=== PATIENT | female | born 1950 | race Hispanic/Latino ===

== ENCOUNTER 2016-10-29 11:00 | Day surgery (SDC) | payer OTHER ==
[2016-09-29 11:47] VITALS: BMI 33.9
[2016-10-29] MEDS ORDERED: Propofol 10 mg/ml Inj (20 ML) ONE (12:22)
[2016-10-29] MEDS ORDERED: Sodium Chloride 0.9% 1,000 ML IV SCH (13:45)
[2016-10-29] MEDS ORDERED: Simethicone 40 mg/0.6 ml Liquid (30 ml) ONE (13:55)
[2016-10-29] MEDS ORDERED: Albuterol 0.083% Inhal Sol (2.5 mg/3 mL) UD IH STA (14:57)
--- NOTE | 2016-10-29 18:26 | RAD ---
HISTORY: r/o pneumonia COMPARISON: 06/13/2015 FINDINGS: LUNGS: The lungs are well inflated and clear. PLEURA: No significant pleural effusion identified, no pneumothorax apparent. CARDIOVASCULAR: Normal. OSSEOUS STRUCTURES: No significant abnormalities. VISUALIZED UPPER ABDOMEN: Normal. OTHER FINDINGS: None. IMPRESSION: No active pulmonary disease.
[2016-10-30] MEDS: Piperacillin/Tazobact 3.375 gm 100 ML IVPB SCH ×2 (02:04→07:25)
[2016-10-30 08:42] LABS: ADD MANUAL DIFF? NO
[2016-10-30 08:46] LABS: BASO # 0.03 K/mm3 (0.0-2.0); BASO % 0.3 % (0.0-3.0); EOS # 0.3 (0.0-0.7); EOS % 2.2 % (1.5-5.0); GRAN # 9.15 (1.4-6.5); LYMPH # 1.4 (1.2-3.4); LYMPH % 12.3 % (22.0-35.0); MEAN CELL VOLUME 86.5 fL (80.0-105.0); MEAN CORPUSCULAR HEMOGLOBIN 28.1 pg (25.0-35.0); MEAN CORPUSCULAR HGB CONC 32.5 g/dl (31.0-37.0); MEAN PLATELET VOLUME 9.4 fl (7.0-11.0); MONO # 0.5 (0.1-0.6); MONO % 4.2 % (1.0-6.0); PLATELET COUNT 236 10^3/uL (120.0-450.0); RED CELL DISTRIBUTION WIDTH 13.9 % (11.5-14.5); WHITE BLOOD COUNT 11.3 10^3/ul (4.5-11.0)
[2016-10-30 09:03] LABS: ALB/GLOB RATIO 1.2 (1.1-1.8); ALKALINE PHOSPHATASE 87 U/L (38-133); ALT/SGPT 45 U/L (7-56); AST/SGOT 23 U/L (15-39); BILIRUBIN,TOTAL 0.6 mg/dL (0.2-1.3); BLOOD UREA NITROGEN 10 mg/dL (7-21); CALCIUM 9.1 mg/dL (8.4-10.5); CARBON DIOXIDE 26 mmol/L (21-33); CHLORIDE 103 mmol/L (95-110); GFR AFRICAN-AMERICAN > 60; GLUCOSE,RANDOM 125 mg/dL (70-110); POTASSIUM 3.7 mmol/L (3.6-5.0); SODIUM 140 mmol/L (132-148); TOTAL PROTEIN 7.4 g/dL (5.8-8.3)
[2016-10-30 09:05] VITALS: BP 141/64; PULSE 81; RESP 20; TEMP 98.3; O2SAT 99
[2016-10-30] MEDS: Albuterol-Ipratrop 3 mg / 0.5 (3 ml) UD IH SCH ×2 (09:32→12:59)
[2016-10-30] MEDS ORDERED: Levothyroxine 112 MCG TAB PO SCH (10:00)
--- NOTE | 2016-10-30 19:07 | CON ---
DATE: 10/30/2016 REFERRING PHYSICIAN: Dr. Cortez. REASON FOR CONSULT: Cough and shortness of breath, sleep apnea syndrome. HISTORY OF PRESENT ILLNESS: This is a [id number]-female who has routine colonoscopy done, post-colo noscopy had vomiting, desaturated, shortness of breath. Was kept under observation. She does have a cough, unable to clear pulmonary secretion. She is an ex-smoker, has sleep apnea syndrome. At pres ent, there is no nausea or vomiting. Does have a cough. No dysuria. No leg pain or leg swelling. PAST MEDICAL HISTORY: Breast cancer, chronic obstructive lung disease, hypertension, hyperlipidemia, hypothyroid. ALLERGIES: None known. SOCIAL HISTORY: Nonsmoker, nondrinker. FAMILY HISTORY: No significant cardiopulmonary disease reported. MEDICATIONS: She is on Cozaar 100 mg daily, vitamin D 50,000 units weekly, DuoNeb q. 6 hours, Femara 2.5 mg daily, Lipitor 20 mg daily, hydrochlorothiazide 12.5 mg daily, Norvasc 10 mg daily, Synthroid 112 mcg daily, Tylenol p.r.n. basis. REVIEW OF SYSTEMS: No headache, no rhinitis. Has a cough, no sputum production, no nausea, no vomit ing, no diarrhea. No leg pain or leg swelling. PHYSICAL EXAMINATION: GENERAL: Lying in the bed in no acute distress. VITAL SIGNS: Temp is 98, heart rate is 91, respiratory rate is 20, blood pressure 141/64, pulse ox 9 9% on nasal cannula. HEENT: Moist mucous membranes. Crowded airway. Mallampati score is 4. NECK: Supple. No JVD. LUNGS: Has scattered rhonchi. HEART: S1, S2. ABDOMEN: Soft, nontender. No organomegaly. EXTREMITIES: There is no edema. NEUROLOGIC: Awake, alert, follows simple commands. LABORATORY DATA: Shows hemoglobin 11.7, hematocrit 36.0, WBC 11.3, platelet is 236. Sodium 140, pot assium 3.7, chloride 103, bicarbonate 26, BUN 15, creatinine 0.7, glucose 175, calcium 9.1, AST 43, A LT 45, alkaline phosphatase is 87, and albumin is 4.1. IMPRESSION AND PLAN: Status post colonoscopy, desaturated, had vomiting, probably aspirated, has acu te bronchitis, hypertension, sleep apnea syndrome. Case discussed with nursing staff. Nebulizer cindy atment 1 given. The patient was given doxycycline. Tapered dose of prednisone for 5 days ____ recom mended to the PMD, Dr. Alfred, next week. Thank you. Simone Tobin MD cc: [id number] TT: 10/30/2016 19:06:53 Confirmation # [id number] Dictation # [id number] jn
--- NOTE | 2016-11-01 08:46 | HP ---
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 Denies any specific GI complaints. The patient has h istory of breast carcinoma, never had a colonoscopy. Is here for screening colonoscopy. The patient underwent colonoscopy under monitored anesthesia. The patient was found to have a hypoxic event dur ing the procedure. The patient was subsequently admitted for observation. The patient did have 2 po lyps, which were removed during the colonoscopy; 1 in the right colon and another 1 in the left colon . There was also a clip applied to the left colon polypectomy site for post-polypectomy wound. The patient denied any abdominal pain post procedure. She was having cough and O2 saturation was fluctua ting between 89 - 93. The patient has some cough. On examination, patient had scattered rhonchi hea rd on the left side of the lungs, few scattered rhonchi heard in the bases. The patient had chest x- ray done which was reported as negative, but however, in view of these above findings the patient for observation. PAST MEDICAL HISTORY: Other past medical history significant for hypothyroidism, hypertension, and d yslipidemia. ALLERGIES: No known drug allergy. REVIEW OF SYSTEMS: Positive as above. Other systems reviewed. PHYSICAL EXAMINATION: GENERAL: The patient is lying on the bed not in acute distress. Feels much better. ____ VITAL SIGNS; Room air was about 95%, blood pressure is 153/63, heart rate 119, mildly tachycardic, r espiratory 18. T-max was 100.5. HEENT: Atraumatic, anicteric. 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 Durin g the procedure the patient was found to have some episodes of hypoxia. Postoperatively in the PACU, the patient sat on room air was 89 - 94. The patient had a few scattered rhonchi heard. The patien t had breathing treatment done. The patient was subsequently admitted for observation. Chest x-ray was also reviewed. No obvious infiltrate noticed. The patient was admitted here for observation in view of ____ . The concern is patient had a low grade fever of 100.5. RECOMMEND: 1. Will start the patient empirically on antibiotics in view of the low grade fever and wheezing too. Will start the patient on Zosyn. 2. Get a pulmonary evaluation. 3. Advance the diet. 4. I did discuss with Dr. Tobin earlier today. Mary Ann Cortez MD cc: [id number] TT: 10/29/2016 23:12:57 jn
--- NOTE | 2016-11-01 08:50 | PN ---
DATE: 10/30/2016 ADDENDUM The patient was seen and evaluated earlier today. The patient had status post colonoscopy, was found to have a transient hypoxia, suspect . The patient was admitted for observation. The patient remains hemodynamically stable. Of note, the patient refused antibiotics and IV yesterday. PHYSICAL EXAMINATION: VITAL SIGNS: Remains afebrile, pulse 81 and blood pressure is 141/64. HEENT: Atraumatic and anicteric. NECK: Supple. HEART: S1, S2 heard. LUNGS: Bilateral air entry present. ABDOMEN: Soft. There was no tenderness. LUNGS: Bilateral air entry present. Occasional rhonchi present. LABORATORY DATA: WBC is 11.3, hemoglobin 11.7, hematocrit 36 and platelets 236. Chemistry is essent ially unremarkable. IMPRESSION. This 66-year-old patient is status post colonoscopy, has transient hypoxia, admitted for observation. Questionable history of minor aspiration. The patient has been evaluated by Dr. Alicia ellington. The patient is going to be discharged today with p.o. antibiotics and a short course of steroids. Clinically, the patient did not have any documented hypoxic episode. Chest x-ray was reported as negative. The patient is advised to follow up with the pulmonary and [facility] doctor as an outpatient. Advised follow up in our office in about 2-3 weeks' time. Thank you very much for allowing us to participate of the patient. Mary Ann Cortez MD cc: [id number] TT: 10/30/2016 18:31:54 Confirmation # [id number] Dictation # [id number] sn
--- NOTE | 2016-11-01 09:33 | CON ---
DATE: 10/29/2016 The patient is a 66-year-old lady. The patient was seen and examined on the bedside on 10/29/2016. CHIEF COMPLAINT: Coughing, shortness of breath. HISTORY OF PRESENT ILLNESS: The patient is a 66-year-old, my private patient, came in the hospital for routine colonoscopy, age appropriate testing. Post colonoscopy, she has vomiting, desaturation, shortness of breath, was kept under observation. She does have cough, unable to clear pulmonary secretions. Seen by the shutdown coordinator, seen by Dr. Cortez also. The patient has history of ex-smoker. Her , Mr. Pacheco, is smoking. Has sleep apnea syndrome and when I saw the patient, at that time, she was comfortable, a little bit wheezing. Otherwise, no nausea, vomiting, diarrhea. No hematuria, no hematochezia. No fever, no chills. PAST MEDICAL HISTORY: Breast cancer, chronic obstructive lung disease, hypertension, hypercholesterolemia, hypothyroidism. ALLERGIES: The patient is not allergic with any medication. SOCIAL HISTORY: Nonsmoker, nondrinker, no substance abuse, but passive smoker. FAMILY HISTORY: Father and mother noncontributory. MEDICATIONS: Cozaar, vitamin D, DuoNeb, Femara, Lipitor, hydrochlorothiazide, Norvasc, Synthroid, Tylenol. REVIEW OF SYSTEMS: The patient seen and examined on the bedside, looks comfortable. No nausea, vomiting, diarrhea. No hematuria, no hematochezia. Having a little bit of cough and wheezing. No fever, no chills. PHYSICAL EXAMINATION: VITAL SIGNS: Temperature 98, heart rate 91, respiratory rate 20, blood pressure 140/64, pulse oximetry 99% on nasal cannula. HEENT: Head normocephalic, atraumatic. Eyes PERRLA. Extraocular muscles intact. Conjunctivae clear. Nose patent. Mucous membranes moist. NECK: Supple. No carotid bruit, no JVD, no thyromegaly. CHEST: Bilaterally symmetrical. HEART: S1, S2 positive. LUNGS: Has scattered rhonchi. ABDOMEN: Soft, nontender. No organomegaly. EXTREMITIES: No edema, no cyanosis. NEUROLOGIC: The patient is awake, alert, moving all 4 extremities. LABORATORIES: Hemoglobin 11.7, hematocrit 36. white blood cells 11.3, platelets 236. Sodium 140, potassium 3.7, BUN 15, creatinine 0.7, AST 43, ALT 45. ASSESSMENT AND PLAN: The patient, my private patient, status post screening colonoscopy, desaturated, had vomiting, probably aspiration, has aspiration bronchitis, hypertension, sleep apnea syndrome, history of breast cancer, status post chemotherapy. In the hospital, got nebulizer treatment, given doxycycline, tapering dose of steroid for 5 days and is recommended to follow up with primary care physician and shutdown coordinator. Gastrointestinal and deep venous thrombosis prophylaxis. Repeat labs. Will follow up. Alexus Alfred MD cc: [id number] TT: 11/01/2016 09:32:33 Confirmation # [id number] Dictation # [id number] [id number]
[2016-11-01] MEDS ORDERED: Ergocalciferol 50,000 Intl Units Cap PO SCH (10:00)
== END 2016-10-30 16:54 | disposition home or self-care (01) ==
LOC: ENDO 11:00 → 5RSO 18:15 → ENDO 10-30 16:54
PROVIDERS: ATTEND Internal Medicine Gastroenterology
DX: Z12.11 Encounter for screening for malignant neoplasm of colon (principal); D12.2 Benign neoplasm of ascending colon; D12.5 Benign neoplasm of sigmoid colon; K57.30 Diverticulosis of large intestine without perforation or abscess without bleeding; K64.8 Other hemorrhoids; R09.02 Hypoxemia; I10 Essential (primary) hypertension; E03.9 Hypothyroidism, unspecified; E78.5 Hyperlipidemia, unspecified; J44.0 Chronic obstructive pulmonary disease with (acute) lower respiratory infection; J20.9 Acute bronchitis, unspecified; G47.30 Sleep apnea, unspecified; Z87.891 Personal history of nicotine dependence; Z85.3 Personal history of malignant neoplasm of breast
CPT/HCPCS: 36415 ×2; 45390; 71010; 80053; 85025; 87040; 87210; 88305; 94640 ×3; 94660; J2405; J2704; J7040 ×2

== ENCOUNTER 2016-11-01 14:10 | Emergency (ER) | payer OTHER ==
[2016-11-01 14:11] VITALS: BMI 33.9
[2016-11-01 14:50] VITALS: BP 132/77; PULSE 85; RESP 16; TEMP 98.5; O2SAT 97
--- NOTE | 2016-11-01 15:55 | ED PDOC ---
Arrival/HPI - General Chief Complaint: Lower Extremity Problem/Injury Time Seen by Provider: 11/01/16 15:27 Historian: Patient - History of Present Illness Narrative History of Present Illness (Text): 11/01/16 15:27 A 66 year old female presents to the emergency department complaining of right knee pain after a mechanical fall. 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 She states she was at work when she slipped and fell onto her right knee. She denies any decrease in range of motion, head trauma, numbness/weakness , or any other complaints at this time. PMD: Dr. Alfred Time/Duration: Prior to Arrival Symptom Onset: Sudden Symptom Course: Unchanged Quality: Other Activities at Onset: Light Context: Work Past Medical History - Provider Review Nursing Documentation Reviewed: Yes - Infectious Disease Hx of Infectious Diseases: None - Tetanus Immunization Tetanus Immunization: Unknown - Past Medical History Past Medical History: No Previous - Cardiac Hx Cardiac Disorders: Yes Hx Hypertension: Yes Hx Pacemaker: No - Pulmonary Hx Respiratory Disorders: No - Neurological Hx Neurological Disorder: No Hx Paralysis: No - HEENT Hx HEENT Disorder: No - Renal Hx Renal Disorder: No - Endocrine/Metabolic Hx Endocrine Disorders: Yes Hx Hypothyroidism: Yes - Hematological/Oncological Hx Blood Disorders: Yes Hx Blood Transfusions: No Hx Blood Transfusion Reaction: No Hx Cancer: Yes (left lumpectomy) - Integumentary Hx Dermatological Disorder: No - Musculoskeletal/Rheumatological Hx Musculoskeletal Disorders: No - Gastrointestinal Hx Gastrointestinal Disorders: No - Genitourinary/Gynecological Hx Genitourinary Disorders: No - Psychiatric Hx Psychophysiologic Disorder: No Hx Emotional Abuse: No Hx Physical Abuse: No Hx Substance Use: No - Past Surgical History Past Surgical History: No Previous - Surgical History Hx Breast Biopsy: Yes (left lumpectomy) - Anesthesia Hx Anesthesia Reactions: No Hx Malignant Hyperthermia: No - Suicidal Assessment Feels Threatened In Home Enviroment: No Family/Social History - Physician Review Nursing Documentation Reviewed: Yes Family/Social History: Unknown Family HX Smoking Status: Never Smoked Hx Alcohol Use: No Hx Substance Use: No Allergies/Home Meds Allergies/Adverse Reactions: Allergies No Known Allergies Allergy (Verified 11/01/16 14:43) Home Medications: Home Meds Medication Instructions Recorded Confirmed Atorvastatin Calcium [Lipitor] 20 mg PO QAM 12/02/14 10/29/16 Hydrochlorothiazide [HCTZ] 12.5 mg PO DAILY 12/02/14 10/29/16 Levothyroxine Sodium [Levoxyl] 112 mcg PO DAILY 12/02/14 10/29/16 Amlodipine Besylate [Norvasc] 10 mg PO QAM 07/15/15 10/29/16 Ergocalciferol (Vitamin D2) 50,000 iu PO MON 07/15/15 10/29/16 [Vitamin D] Losartan [Cozaar] 100 mg PO DAILY 07/21/15 10/29/16 Letrozole 2.5 mg PO DAILY 09/29/16 10/29/16 Review of Systems - Physician Review All systems were reviewed & negative as marked: Yes - Review of Systems Constitutional: absent: Other (head injury) Musculoskeletal: Other (right knee pain) Neurological: absent: Focal Weakness, Other (numbness) Physical Exam Vital Signs Reviewed: Yes Vital Signs Temp Pulse Resp BP Pulse Ox 11/01/16 14:46 98.5 F 85 16 132/77 97 Temperature: Afebrile Blood Pressure: Normal Pulse: Regular Respiratory Rate: Normal Appearance: Positive for: Well-Appearing, Non-Toxic, Comfortable Pain Distress: None Mental Status: Positive for: Alert and Oriented X 3 - Systems Exam Head: Present: Atraumatic, Normocephalic Conjunctiva: Present: Normal Mouth: Present: Moist Mucous Membranes Neck: Present: Normal Range of Motion Back: No: Midline Tenderness, Paraspinal Tenderness Upper Extremity: Present: Normal Inspection. No: Cyanosis, Edema Lower Extremity: Present: Tenderness (mild tenderness with palpation to the right knee), Swelling (mild swelling the the right knee) Neurological: Present: GCS=15, CN II-XII Intact, Speech Normal Skin: Present: Warm, Dry, Normal Color. No: Rashes Psychiatric: Present: Alert, Oriented x 3, Normal Insight, Normal Concentration Medical Decision Making ED Course and Treatment: 11/01/16 15:27 Impression: A 66 year old female with knee pain after a mechanical fall. Differential Diagnosis include but are not limited to: fracture vs. dislocation vs. sprain vs. strain Plan: -- Right knee X-ray -- Reassess and disposition Prior Visits: Notes and results from previous visits were reviewed. The patient last presented to the emergency department on 07/05/14 for evaliaton of left elbow edema and pain. Progress Notes: 11/01/16 16:23 XR right knee: no fracture, no dislocation, as read by PA Patient advised that official radiology read of XR is still pending and will call the patient if there is any discrepancy within 24 hours. X-ray results discussed with the patient in great detail. Sergio wrap, knee immobilizer was applied to the knee. Patient instructed on crutch walking. Patient advised to ice and elevate affected knee, and take [id number] Aleve as needed for pain. Patient states she fully agrees with and understands discharge instructions. States that she agrees with the plan and disposition. Verbalized and repeated discharge instructions and plan. I have given the patient opportunity to ask any additional questions. Follow up with employee health in 1-2 days without fail. Return to the emergency room at any time for any new or worsening symptoms. - RAD Interpretation Radiology Orders: 11/01/16 15:27 KNEE RIGHT 2 VIEWS (AP & LAT) [RAD] Stat - PA / RECREATION TECHNICIAN / Resident Statement MD/ has reviewed & agrees with the documentation as recorded. MD/ has examined the patient and agrees with the treatment plan. - Scribe Statement The provider has reviewed the documentation as recorded by the Roqueibe Kary Gomez Provider Scribe Attestation: All medical record entries made by the Amaris were at my direction and personally dictated by me. I have reviewed the chart and agree that the record accurately reflects my personal performance of the history, physical exam, medical decision making, and the department course for this patient. I have also personally directed, reviewed, and agree with the discharge instructions and disposition. Disposition/Present on Arrival - Present on Arrival Any Indicators Present on Arrival: No History of DVT/PE: No History of Uncontrolled Diabetes: No Urinary Catheter: No History of Decub. Ulcer: No History Surgical Site Infection Following: None - Disposition Have Diagnosis and Disposition been Completed?: Yes Diagnosis: Contusion of knee, right Disposition: HOME/ ROUTINE Disposition Time: 16:15 Patient Plan: Discharge Condition: GOOD Discharge Instructions (ExitCare): Contusion in Adults (ED), Knee Pain (ED) Print Language: [place] Additional Instructions: Thank you for letting us take care of you today. You were treated for knee contusion. The emergency medical care you received today was directed at your acute symptoms. It may take several days for your symptoms to resolve. Return to the Emergency Department if your symptoms worsen, do not improve, or if you have any other problems. Please contact [facility] in 2 days for re-evaluation and follow up. Bring any paperwork you were given at discharge with you along with any medications you are taking to your follow up visit. Our treatment cannot replace ongoing medical care by a primary care provider (PCP) outside of the emergency department. Thank you for allowing the [facility] team to be part of your care today. Referrals: Alexus Alfred MD [Primary Care Provider] - Follow up with primary Forms: WORK NOTE
--- NOTE | 2016-11-01 17:17 | RAD ---
PROCEDURE: Right Knee Radiographs. HISTORY: COMPARISON: Bilateral knee radiographs performed 12/02/15 FINDINGS: BONES: No acute displaced fracture. Degenerative changes including tenting of the intercondylar notch. JOINTS: No dislocation. Patellofemoral and medial compartment joint space narrowing. JOINT EFFUSION: Small suprapatellar joint effusion. OTHER FINDINGS: None. IMPRESSION: Degenerative changes as above. Small suprapatellar joint effusion.
== END 2016-11-01 16:30 | disposition home or self-care (01) ==
LOC: ED 14:10
DX: S80.01XA Contusion of right knee, initial encounter (principal); W01.0XXA Fall on same level from slipping, tripping and stumbling without subsequent striking against object, initial encounter; Y92.89 Other specified places as the place of occurrence of the external cause; Y99.0 Civilian activity done for income or pay; I10 Essential (primary) hypertension

== ENCOUNTER 2018-07-11 09:57 | Outpatient (CLI) | payer OTHER | END 2018-07-11 09:58 | disposition home or self-care (01) | LOC: RAD 09:57 ==

== ENCOUNTER 2018-10-02 10:36 | Outpatient (CLI) | payer OTHER | END 2018-10-02 10:37 | disposition home or self-care (01) | LOC: LAB 10:36 ==